=== PATIENT | male | born 1975 | race American Indian/Alaskan Native ===

== ENCOUNTER 2016-10-19 15:46 | Emergency (ER) | payer BC ==
--- NOTE | 2016-10-19 16:15 | Emergency Department Report ---
Chief Complaint: Chest Pain Stated Complaint: CHEST PAIN Time Seen by Provider: 10/19/16 16:12 - HPI History of Present Illness: PT c/o chest pain x 2 days. PT states his pain became worse today at work. - ROS Review of Systems: - n/v - Exam Vital Signs: Vital Signs 10/19/16 16:00 Temperature 98.8 F Pulse Rate 78 Respiratory 19 Rate Blood Pressure 143/96 O2 Sat by Pulse 99 Oximetry Physical Exam: thin male, no acute distress rrr MSE screening note: Focused history and physical exam performed. Due to findings the following was ordered: xr, labs ED Disposition for MSE Condition: Stable
[2016-10-19 16:27] LABS: Basophils % (Auto) 0.3 % (0.0-1.8); Eosinophils % (Auto) 2.4 % (0.0-4.3); Hematocrit 39.3 % (35.5-45.6); Hemoglobin 13.9 gm/dl (11.8-15.2); Mean Corpuscular HGB Conc 36 % (32-34); Mean Corpuscular Hemoglobin 33 pg (28-32); Mean Corpuscular Volume 94 fl (84-94); Platelet Count 212 K/mm3 (140-440); Red Blood Count 4.19 M/mm3 (3.65-5.03); Red Cell Distribution Width 13.7 % (13.2-15.2)
--- NOTE | 2016-10-19 16:49 | XRay Report ---
ROUTINE CHEST, TWO VIEWS: History: Chest pain. PA and lateral views demonstrate the heart and mediastinal contour to be of normal size and shape. The lungs are clear and fully expanded and the soft tissues and bony structures are normal. IMPRESSION: Normal study.
[2016-10-19 16:59] LABS: Anion Gap 18 mmol/L; BUN/Creatinine Ratio 13.33; Blood Urea Nitrogen 20 mg/dL (9-20); Calcium 8.9 mg/dL (8.4-10.2); Carbon Dioxide 24 mmol/L (22-30); Chloride 103.1 mmol/L (98-107); Glucose 87 mg/dL (75-100); Potassium 4.4 mmol/L (3.6-5.0); Sodium 141 mmol/L (137-145)
[2016-10-19] MEDS ORDERED: ALUM-MAG HYDROX-SIMETH 200-200-20MG/5ML PO ONE (20:32)
[2016-10-19] MEDS ORDERED: TORADOL IM ONE (20:32)
[2016-10-19] MEDS ORDERED: CARAFATE PO ONE (20:32)
[2016-10-19] MEDS ORDERED: BENTYL PO ONE (20:32)
--- NOTE | 2016-10-19 20:34 | Emergency Department Report ---
ED General Adult HPI - General Chief complaint: Chest Pain Stated complaint: CHEST PAIN Time Seen by Provider: 10/19/16 16:12 Source: patient, RN notes reviewed, old records reviewed Mode of arrival: Ambulatory Limitations: No Limitations - History of Present Illness Initial comments: This is a 41-year-old male. He is previously unknown to me. He has a past medical history of hypertension, chronic kidney disease, tobacco use, reported history of renal insufficiency, right bundle branch block. Patient admitted to this hospital June 2016 for chest pain, found to have an ejection fraction of 48%, and a negative nuclear stress test. The patient presents to the ER today with complaint of chest pain. The chest pain is central. It does not radiate to the back, arms or neck. It started at 9:00 in the morning. Chest pain denies nausea, vomiting, diaphoresis. There is no leg pain. There is no leg swelling. No recent trips greater than 4 hours. No recent hospital admissions. The patient also endorses left lower quadrant pain. This pain is achy. It has been on and off for the past 2 months. It does not radiate anywhere. It increases with palpation. It decreases with rest. There is no testicular pain. There are no irritative or obstructive urinary symptoms. He is defecating normally. Patient did admit to mild headache on review of systems, however this headache is not sudden or thunderclap in nature, did not really maximal intensity within an hour, is not the worse headache of his life. There is no neck pain or neck stiffness. -: Gradual Location: head, chest, abdomen Radiation: non-radiation Severity scale (0 -10): 4 Quality: aching Consistency: intermittent Improves with: other (per hpi) Worsens with: other (per hpi) Associated Symptoms: chest pain, headaches - Related Data Home Medications Medication Instructions Recorded Confirmed Last Taken Labetalol 300 mg PO BID 06/25/16 06/25/16 Unknown Losartan 100 mg PO DAILY 06/25/16 06/25/16 Unknown Allergies Allergy/AdvReac Type Severity Reaction Status Date / Time No Known Allergies Allergy Verified 06/25/16 21:23 ED Review of Systems ROS: Stated complaint: CHEST PAIN Other details as noted in HPI Constitutional: denies: diaphoresis, fever, malaise Eyes: denies: vision change ENT: denies: epistaxis Respiratory: see HPI. denies: cough Cardiovascular: denies: chest pain Gastrointestinal: abdominal pain Genitourinary: denies: urgency, dysuria Musculoskeletal: denies: back pain Skin: denies: lesions Neurological: headache ED Past Medical Hx - Past Medical History Hx Hypertension: Yes Hx Renal Disease: Yes - Social History Smoking Status: Current Every Day Smoker Substance Use Type: None - Medications Home Medications: Home Medications Medication Instructions Recorded Confirmed Last Taken Type Labetalol 300 mg PO BID 06/25/16 06/25/16 Unknown History Losartan 100 mg PO DAILY 06/25/16 06/25/16 Unknown History ED Physical Exam - General Limitations: No Limitations General appearance: alert, in no apparent distress - Head Head exam: Present: atraumatic, normocephalic - Eye Eye exam: Present: normal appearance, PERRL, EOMI, other (visual acuity intact to finger counting, color perception, reading at a close distance). Absent: nystagmus - ENT ENT exam: Present: normal exam, normal orophraynx, mucous membranes moist, normal external ear exam - Neck Neck exam: Present: normal inspection, full ROM. Absent: tenderness, meningismus - Respiratory Respiratory exam: Present: normal lung sounds bilaterally. Absent: respiratory distress, wheezes, rales, rhonchi, stridor, chest wall tenderness - Cardiovascular Cardiovascular Exam: Present: regular rate, normal rhythm, normal heart sounds. Absent: bradycardia, tachycardia, irregular rhythm, systolic murmur, diastolic murmur, rubs, gallop - GI/Abdominal GI/Abdominal exam: Present: soft, tenderness (left lower quadrant tender. No rebound, guarding or peritoneal signs.), normal bowel sounds. Absent: distended , guarding, rebound, rigid - Rectal Rectal exam: Present: deferred - exam: Present: normal inspection, other (there is no testicular tenderness. There is normal testicular lie bilaterally. There is normal cremasteric reflex bilaterally.). Absent: testicular tenderness External exam: Present: normal external exam. Absent: erythema, swelling - Extremities Exam Extremities exam: Present: normal inspection, full ROM, normal capillary refill. Absent: pedal edema, joint swelling, calf tenderness - Back Exam Back exam: Present: normal inspection, full ROM. Absent: tenderness, CVA tenderness (R), CVA tenderness (L), muscle spasm, paraspinal tenderness, vertebral tenderness - Neurological Exam Neurological exam: Present: alert, oriented X3, normal gait, other (Extraocular movements intact. Tongue midline. No facial droop. Facial sensation intact to light touch in the V1, V2, V3 distribution bilaterally. 5 and 5 strength in 4 extremities.. Sensation is intact to light touch in 4 extremities.). Absent : motor sensory deficit - Psychiatric Psychiatric exam: Present: normal affect, normal mood - Skin Skin exam: Present: warm, dry, intact, normal color. Absent: rash ED Course Vital Signs 10/19/16 10/19/16 10/19/16 16:00 19:45 19:51 Temperature 98.8 F Pulse Rate 78 68 67 Respiratory 19 11 L Rate Blood Pressure 143/96 168/95 Blood Pressure [Left] O2 Sat by Pulse 99 100 Oximetry 10/19/16 10/19/16 10/19/16 20:00 20:11 20:20 Temperature Pulse Rate 64 65 Respiratory 11 L 18 Rate Blood Pressure 155/96 155/96 Blood Pressure 155/96 [Left] O2 Sat by Pulse 100 99 Oximetry 10/19/16 10/19/16 10/19/16 20:21 20:30 20:45 Temperature Pulse Rate 65 66 69 Respiratory 13 18 13 Rate Blood Pressure 141/95 147/92 161/102 Blood Pressure [Left] O2 Sat by Pulse 100 100 100 Oximetry 10/19/16 10/19/16 10/19/16 20:51 21:00 21:11 Temperature Pulse Rate 70 62 63 Respiratory 16 18 16 Rate Blood Pressure 161/102 147/78 147/78 Blood Pressure [Left] O2 Sat by Pulse 100 100 98 Oximetry 10/19/16 10/19/16 21:21 21:30 Temperature Pulse Rate 63 65 Respiratory 14 10 L Rate Blood Pressure 159/78 132/76 Blood Pressure [Left] O2 Sat by Pulse 98 98 Oximetry ED Medical Decision Making - Lab Data Result diagrams: 10/19/16 16:11 10/19/16 16:11 Vital Signs 10/19/16 10/19/16 10/19/16 16:00 19:45 19:51 Temperature 98.8 F Pulse Rate 78 68 67 Respiratory 19 11 L Rate Blood Pressure 143/96 168/95 Blood Pressure [Left] O2 Sat by Pulse 99 100 Oximetry 10/19/16 10/19/16 10/19/16 20:00 20:11 20:20 Temperature Pulse Rate 64 65 Respiratory 11 L 18 Rate Blood Pressure 155/96 155/96 Blood Pressure 155/96 [Left] O2 Sat by Pulse 100 99 Oximetry 10/19/16 10/19/16 10/19/16 20:21 20:30 20:45 Temperature Pulse Rate 65 66 69 Respiratory 13 18 13 Rate Blood Pressure 141/95 147/92 161/102 Blood Pressure [Left] O2 Sat by Pulse 100 100 100 Oximetry 10/19/16 10/19/16 20:51 21:00 Temperature Pulse Rate 70 62 Respiratory 16 18 Rate Blood Pressure 161/102 147/78 Blood Pressure [Left] O2 Sat by Pulse 100 100 Oximetry Lab Results 10/19/16 10/19/16 10/19/16 Range/Units 16:11 16:11 16:15 WBC 12.0 H (4.5-11.0) K/mm3 RBC 4.19 (3.65-5.03) M/mm3 Hgb 13.9 (11.8-15.2) gm/dl Hct 39.3 (35.5-45.6) % MCV 94 (84-94) fl MCH 33 H (28-32) pg MCHC 36 H (32-34) % RDW 13.7 (13.2-15.2) % Plt Count 212 (140-440) K/mm3 Lymph % (Auto) 13.0 L (13.4-35.0) % Branch % (Auto) 6.9 (0.0-7.3) % Eos % (Auto) 2.4 (0.0-4.3) % Baso % (Auto) 0.3 (0.0-1.8) % Lymph # 1.6 (1.2-5.4) K/mm3 Branch # 0.8 (0.0-0.8) K/mm3 Eos # 0.3 (0.0-0.4) K/mm3 Baso # 0.0 (0.0-0.1) K/mm3 Seg Neutrophils % 77.4 H (40.0-70.0) % Seg Neutrophils # 9.3 H (1.8-7.7) K/mm3 Sodium 141 (137-145) mmol/L Potassium 4.4 (3.6-5.0) mmol/L Chloride 103.1 (98-107) mmol/L Carbon Dioxide 24 (22-30) mmol/L Anion Gap 18 mmol/L BUN 20 (9-20) mg/dL Creatinine 1.5 (0.8-1.5) mg/dL Estimated GFR > 60 ml/min BUN/Creatinine Ratio 13.33 % Glucose 87 (75-100) mg/dL Calcium 8.9 (8.4-10.2) mg/dL Total Creatine Kinase 214 H (55-170) units/L Troponin T < 0.010 (0.00-0.029) ng/mL Urine Color (Yellow) Urine Turbidity (Clear) Urine pH (5.0-7.0) Ur Specific [place] (1.003-1.030) Urine Protein (Negative) mg/dL Urine Glucose (UA) (Negative) mg/dL Urine Ketones (Negative) mg/dL Urine Blood (Negative) Urine Nitrite (Negative) Urine Bilirubin (Negative) Urine Urobilinogen (<2.0) mg/dL Ur Leukocyte Esterase (Negative) Urine WBC (Auto) (0.0-6.0) /HPF Urine RBC (Auto) (0.0-6.0) /HPF Urine Mucus /HPF 10/19/16 10/19/16 Range/Units 19:57 20:57 WBC (4.5-11.0) K/mm3 RBC (3.65-5.03) M/mm3 Hgb (11.8-15.2) gm/dl Hct (35.5-45.6) % MCV (84-94) fl MCH (28-32) pg MCHC (32-34) % RDW (13.2-15.2) % Plt Count (140-440) K/mm3 Lymph % (Auto) (13.4-35.0) % Branch % (Auto) (0.0-7.3) % Eos % (Auto) (0.0-4.3) % Baso % (Auto) (0.0-1.8) % Lymph # (1.2-5.4) K/mm3 Branch # (0.0-0.8) K/mm3 Eos # (0.0-0.4) K/mm3 Baso # (0.0-0.1) K/mm3 Seg Neutrophils % (40.0-70.0) % Seg Neutrophils # (1.8-7.7) K/mm3 Sodium (137-145) mmol/L Potassium (3.6-5.0) mmol/L Chloride (98-107) mmol/L Carbon Dioxide (22-30) mmol/L Anion Gap mmol/L BUN (9-20) mg/dL Creatinine (0.8-1.5) mg/dL Estimated GFR ml/min BUN/Creatinine Ratio % Glucose (75-100) mg/dL Calcium (8.4-10.2) mg/dL Total Creatine Kinase (55-170) units/L Troponin T < 0.010 (0.00-0.029) ng/mL Urine Color Yellow (Yellow) Urine Turbidity Clear (Clear) Urine pH 5.0 (5.0-7.0) Ur Specific [place] 1.011 (1.003-1.030) Urine Protein <15 mg/dl (Negative) mg/dL Urine Glucose (UA) Neg (Negative) mg/dL Urine Ketones Neg (Negative) mg/dL Urine Blood Neg (Negative) Urine Nitrite Neg (Negative) Urine Bilirubin Neg (Negative) Urine Urobilinogen < 2.0 (<2.0) mg/dL Ur Leukocyte Esterase Neg (Negative) Urine WBC (Auto) < 1.0 (0.0-6.0) /HPF Urine RBC (Auto) 1.0 (0.0-6.0) /HPF Urine Mucus Few /HPF - EKG Data -: EKG Interpreted by Vt - EKG Data 10/19/16 21:38 EKG #1 demonstrates sinus, 74 bpm, normal axis, right bundle branch block, atrial enlargement, QTC 483 ms. abnormal EKG, not morphologically consistent with STEMI, appears unchanged when compared to prior EKG from 06/25/2016. EKG #2 unchanged, demonstrates sinus bradycardia, 58 beats minute, right bundle branch block, not morphologically consistent with STEMI. - Radiology Data Radiology results: report reviewed, image reviewed X-ray of the chest is negative for acute disease. X-ray of the abdomen and pelvis is negative for acute disease. - Medical Decision Making Differential diagnosis: Acute coronary syndrome, pneumonia, GERD, gastritis, constipation, renal colic, migraine headache Assessment and plan: 41-year-old male with a primary complaint of chest pain, and a number of other complaints as well. Troponin is negative 2, had a negative nuclear stress test earlier on this year, EKG morphologically unchanged 2, unchanged from prior EKG, low risk by CHAUNCEY score, low risk by heart score, low risk by well's criteria, no pulmonary embolus or DVT risk factors, perc negative. Patient felt improved after symptomatic therapy. Has a benign genital exam. Belly soft on repeat examination. Given young age, I see no reason to obtain advanced imaging of the abdomen and pelvis, especially given that his symptoms have been going on for 2 months. The patient can follow up with outpatient primary care doctor for his numerous nonurgent complaints, and he is suitable for outpatient rn clinical for his atypical chest pain. He'll be discharged at this time, return precautions are reviewed. Critical care attestation.: If time is entered above; I have spent that time in minutes in the direct care of this critically ill patient, excluding procedure time. ED Disposition Clinical Impression: Chest pain Disposition: DC-01 TO HOME OR SELFCARE Is pt being admited?: No Does the pt Need Aspirin: No Condition: Stable Instructions: Chest Pain (ED) Additional Instructions: Laboratory studies were unremarkable. EKG unchanged. X-rays unremarkable. Symptoms are unlikely to be coming from major adverse cardiac event. Follow-up with the primary care doctor or rn clinical within the next 7-[address] Shashi Campo is a local primary care doctor. Doctor's Carmela and Jeremías are local client technical specialist. Return to the ER right away with new pain, worsened pain, migration of pain, fevers, chills, confusion, intractable nausea or vomiting, inability to tolerate liquid feeds. Referrals: PRIMARY MD CRIS [Primary Care Provider] - 3-5 Days SHASHI CAMPO MD [Staff Physician] - 3-5 Days CELSO HERNADEZ MD [Staff Physician] - 3-5 Days ANGELA ESTRADA MD [Staff Physician] - 3-5 Days
[2016-10-19 20:49] LABS: Bilirubin,Urine NEG (Negative); Blood,Urine NEG (Negative); Ketones,Urine NEG (Negative); Leukocyte Esterase,Urine NEG (Negative); Mucus,Urine FEW /HPF; Nitrite,Urine NEG (Negative); Protein,Urine <15 mg/dL mg/dL (Negative); Urobilinogen,Urine < 2.0 mg/dL (<2.0); WBC,Urine < 1.0 /HPF (0.0-6.0)
[2016-10-19 21:41] VITALS: BP 132/76
--- NOTE | 2016-10-20 07:29 | XRay Report ---
ABDOMEN, 2 views: History: Left lower quadrant abdominal pain.. There is no evidence of free air beneath the diaphragms. The gas pattern within the abdomen is unremarkable. There is no evidence of bowel dilatation, significant air-fluid levels, or pathologic calcifications. Organ shadows are unremarkable. Moderate scoliosis in the thoracolumbar region is noted. IMPRESSION: Unremarkable abdomen.
== END 2016-10-19 22:04 | disposition home or self-care (01) ==
LOC: ED 15:46
DX: R07.9 Chest pain, unspecified (principal); F17.200 Nicotine dependence, unspecified, uncomplicated; I12.9 Hypertensive chronic kidney disease with stage 1 through stage 4 chronic kidney disease, or unspecified chronic kidney disease; N18.9 Chronic kidney disease, unspecified
CPT/HCPCS: 36415; 71020; 74020; 80048; 81001; 82550; 84484; 85025; 93005; 93010; 96372; 99285; J1885

== ENCOUNTER 2016-10-26 09:41 | Emergency (ER) | payer BC ==
--- NOTE | 2016-10-26 10:00 | Emergency Department Report ---
Chief Complaint: Pain General Stated Complaint: LEFT SIDE PAIN Time Seen by Provider: 10/26/16 09:57 - HPI History of Present Illness: PT c/o L side pain. PT states he was doing some lifting yesterday before he felt the pain. - ROS Review of Systems: - sob - palpitations + abd pain - Exam Physical Exam: + left upper abd ttp + left chest wall ttp MSE screening note: Focused history and physical exam performed. Due to findings the following was ordered: xr, labs ED Disposition for MSE Condition: Stable
--- NOTE | 2016-10-26 10:24 | XRay Report ---
CHEST 2 VIEWS INDICATION: Chest wall pain after lifting. COMPARISON: 10/19/2016. FINDINGS: PA and lateral chest radiographs demonstrate normal cardiomediastinal silhouette. Clear lungs. Intact bones. CONCLUSION: No acute disease in the chest, stable. Thank you for the opportunity to participate in this patient's care.
[2016-10-26 10:27] LABS: Eosinophils % (Auto) 3.1 % (0.0-4.3); Hematocrit 40.2 % (35.5-45.6); Mean Corpuscular HGB Conc 35 % (32-34); Mean Corpuscular Hemoglobin 33 pg (28-32); Mean Corpuscular Volume 94 fl (84-94); Platelet Count 254 K/mm3 (140-440); Red Cell Distribution Width 13.8 % (13.2-15.2); White Blood Count 12.5 K/mm3 (4.5-11.0)
[2016-10-26 10:42] LABS: Alanine Aminotransferase 17 units/L (7-56); Albumin 4.3 g/dL (3.9-5); Albumin/Globulin Ratio 1.5 %; Alkaline Phosphatase 61 units/L (35-129); Anion Gap 18 mmol/L; BUN/Creatinine Ratio 9.23; Blood Urea Nitrogen 12 mg/dL (9-20); Calcium 8.8 mg/dL (8.4-10.2); Carbon Dioxide 23 mmol/L (22-30); Chloride 105.8 mmol/L (98-107); Glucose 153 mg/dL (75-100); Potassium 3.8 mmol/L (3.6-5.0); Sodium 143 mmol/L (137-145); Total Protein 7.1 g/dL (6.3-8.2)
[2016-10-26 12:26] LABS: Bilirubin,Urine NEG (Negative); Blood,Urine NEG (Negative); Ketones,Urine TR mg/dL (Negative); Leukocyte Esterase,Urine TR (Negative); Mucus,Urine 1+ /HPF; Nitrite,Urine NEG (Negative); Urobilinogen,Urine < 2.0 mg/dL (<2.0)
[2016-10-26] MEDS ORDERED: TORADOL IM ONE (16:35)
--- NOTE | 2016-10-26 16:40 | Emergency Department Report ---
ED Back Pain/Injury HPI - General Chief Complaint: Abdominal Pain Stated Complaint: LEFT SIDE PAIN Time Seen by Provider: 10/26/16 09:57 Source: patient Limitations: No Limitations - History of Present Illness Initial Comments: 41-year-old male here with complaint of left back pain. Patient states he's been lifting heavy equipment over the course of the last 24 hours. Started noticed pain yesterday. Denies fevers chills nausea vomiting. States his pain does radiate around to the side. No dysuria no frequency. States he does have a history of kidney stones. MD Complaint: back pain -: Sudden Similar Symptoms Previously: No Place: work Radiation: abdomen Severity: moderate Quality: sharp Consistency: constant Worsens With: movement Context: while lifting Associated Symptoms: denies other symptoms. denies: confusion, weakness, chest pain, numbness, difficulty walking, diaphoresis, incontinence, fever/chills, constipation, headaches, nausea/vomiting, shortness of breath - Related Data Home Medications Medication Instructions Recorded Confirmed Last Taken Labetalol 300 mg PO BID 06/25/16 06/25/16 Unknown Losartan 100 mg PO DAILY 06/25/16 06/25/16 Unknown Previous Rx's Medication Instructions Recorded Last Taken Type Ibuprofen [Motrin] 600 mg PO Q8H PRN #30 tablet 10/26/16 Unknown Rx traMADol [Ultram 50 MG tab] 50 mg PO Q6HR PRN #10 tablet 10/26/16 Unknown Rx Allergies Allergy/AdvReac Type Severity Reaction Status Date / Time No Known Allergies Allergy Verified 06/25/16 21:23 ED Review of Systems ROS: Stated complaint: LEFT SIDE PAIN Other details as noted in HPI Comment: All other systems reviewed and negative Constitutional: denies: chills, fever Eyes: denies: eye pain, eye discharge, vision change ENT: denies: ear pain, throat pain Respiratory: denies: cough, shortness of breath, wheezing Cardiovascular: denies: chest pain, palpitations Endocrine: no symptoms reported Gastrointestinal: denies: abdominal pain, nausea, diarrhea Genitourinary: denies: urgency, dysuria Musculoskeletal: denies: back pain, joint swelling, arthralgia Skin: denies: rash, lesions Neurological: denies: headache, weakness, paresthesias Psychiatric: denies: anxiety, depression Hematological/Lymphatic: denies: easy bleeding, easy bruising ED Past Medical Hx - Past Medical History Previous Medical History?: Yes Hx Hypertension: Yes Hx Renal Disease: Yes - Surgical History Past Surgical History?: No - Family History Family history: no significant - Social History Smoking Status: Current Every Day Smoker Substance Use Type: Marijuana, Prescribed - Medications Home Medications: Home Medications Medication Instructions Recorded Confirmed Last Taken Type Labetalol 300 mg PO BID 06/25/16 06/25/16 Unknown History Losartan 100 mg PO DAILY 06/25/16 06/25/16 Unknown History Ibuprofen [Motrin] 600 mg PO Q8H PRN #30 tablet 10/26/16 Unknown Rx traMADol [Ultram 50 MG tab] 50 mg PO Q6HR PRN #10 tablet 10/26/16 Unknown Rx ED Physical Exam - General Limitations: No Limitations General appearance: alert, in no apparent distress - Head Head exam: Present: atraumatic, normocephalic - Eye Eye exam: Present: normal appearance - ENT ENT exam: Present: mucous membranes moist - Neck Neck exam: Present: normal inspection - Respiratory Respiratory exam: Present: normal lung sounds bilaterally. Absent: respiratory distress - Cardiovascular Cardiovascular Exam: Present: regular rate, normal rhythm. Absent: systolic murmur, diastolic murmur, rubs, gallop - GI/Abdominal GI/Abdominal exam: Present: soft, normal bowel sounds - Rectal Rectal exam: Present: deferred - Extremities Exam Extremities exam: Present: normal inspection - Back Exam Back exam: Present: normal inspection, tenderness. Absent: CVA tenderness (R), CVA tenderness (L) - Neurological Exam Neurological exam: Present: alert, oriented X3 - Psychiatric Psychiatric exam: Present: normal affect, normal mood - Skin Skin exam: Present: warm, dry, intact, normal color. Absent: rash ED Course Vital Signs 10/26/16 09:57 Temperature 99.1 F Pulse Rate 69 Respiratory 20 Rate Blood Pressure 130/91 O2 Sat by Pulse 99 Oximetry ED Medical Decision Making - Lab Data Result diagrams: 10/26/16 10:01 10/26/16 10:01 Laboratory Results - last 24 hr 10/26/16 10/26/16 10/26/16 10:01 10:01 10:01 WBC 12.5 H RBC 4.30 Hgb 14.0 Hct 40.2 MCV 94 MCH 33 H MCHC 35 H RDW 13.8 Plt Count 254 Lymph % (Auto) 18.2 [place] % (Auto) 6.3 Eos % (Auto) 3.1 Baso % (Auto) 1.0 Lymph # 2.3 [place] # 0.8 Eos # 0.4 Baso # 0.1 Seg Neutrophils % 71.4 H Seg Neutrophils # 8.9 H Sodium 143 Potassium 3.8 Chloride 105.8 Carbon Dioxide 23 Anion Gap 18 BUN 12 Creatinine 1.3 Estimated GFR > 60 BUN/Creatinine Ratio 9.23 Glucose 153 H Calcium 8.8 Total Bilirubin 0.60 AST 21 ALT 17 Alkaline Phosphatase 61 Total Creatine Kinase Total Protein 7.1 Albumin 4.3 Albumin/Globulin Ratio 1.5 Lipase 41 Urine Color Urine Turbidity Urine pH Ur Specific [place] Urine Protein Urine Glucose (UA) Urine Ketones Urine Blood Urine Nitrite Urine Bilirubin Urine Urobilinogen Ur Leukocyte Esterase Urine WBC (Auto) Urine RBC (Auto) U Epithel Cells (Auto) Urine Mucus 10/26/16 10/26/16 10:01 11:21 WBC RBC Hgb Hct MCV MCH MCHC RDW Plt Count Lymph % (Auto) [place] % (Auto) Eos % (Auto) Baso % (Auto) Lymph # [place] # Eos # Baso # Seg Neutrophils % Seg Neutrophils # Sodium Potassium Chloride Carbon Dioxide Anion Gap BUN Creatinine Estimated GFR BUN/Creatinine Ratio Glucose Calcium Total Bilirubin AST ALT Alkaline Phosphatase Total Creatine Kinase 323 H Total Protein Albumin Albumin/Globulin Ratio Lipase Urine Color Yellow Urine Turbidity Clear Urine pH 5.0 Ur Specific [place] 1.021 Urine Protein 30 mg/dl Urine Glucose (UA) Neg Urine Ketones Tr Urine Blood Neg Urine Nitrite Neg Urine Bilirubin Neg Urine Urobilinogen < 2.0 Ur Leukocyte Esterase Tr Urine WBC (Auto) 1.0 Urine RBC (Auto) 4.0 U Epithel Cells (Auto) 1.0 Urine Mucus 1+ - Medical Decision Making 41-year-old male with a history of new onset back pain after lifting heavy machinery. He has no numbness tingling or cauda equina type symptoms. He is mildly tender in his left back. He has a few white blood cells in his urine but he has no dysuria fever chills or urinary frequency. I do not suspect he has UTI. His slight elevation in his white blood cell count but no obvious source. At this point I'll treat him with NSAIDs and discharge him home. Portions of this chart were dictated with dictation software. There may be dictation errors contained within this note. Critical care attestation.: If time is entered above; I have spent that time in minutes in the direct care of this critically ill patient, excluding procedure time. ED Disposition Clinical Impression: Flank pain Disposition: DC- TO HOME OR SELFCARE Is pt being admited?: No Condition: Stable Instructions: Flank Pain (ED) Prescriptions: Ibuprofen [Motrin] 600 mg PO Q8H PRN #30 tablet PRN Reason: Pain traMADol [Ultram 50 MG tab] 50 mg PO Q6HR PRN #10 tablet PRN Reason: Pain Referrals: VICKY BEAN [Primary Care Provider] - 3-5 Days
[2016-10-26 16:57] VITALS: BP 129/69
== END 2016-10-26 16:56 | disposition home or self-care (01) ==
LOC: ED 09:41
DX: R10.9 Unspecified abdominal pain (principal); I10 Essential (primary) hypertension; F17.200 Nicotine dependence, unspecified, uncomplicated; F12.10 Cannabis abuse, uncomplicated
CPT/HCPCS: 36415; 71020; 80053; 81001; 82550; 83690; 85025; 96372; 99284; J1885

== ENCOUNTER 2016-12-13 19:00 | Emergency (ER) | payer BC | END 2016-12-14 05:50 | disposition left against medical advice (07) | LOC: ED 19:00 | DX: Z53.21 Procedure and treatment not carried out due to patient leaving prior to being seen by health care provider (principal) ==

== ENCOUNTER 2016-12-14 14:22 | Emergency (ER) | payer BC ==
--- NOTE | 2016-12-14 15:23 | Emergency Department Report ---
Chief Complaint: Chest Pain Stated Complaint: CP Time Seen by Provider: 12/14/16 15:15 - HPI History of Present Illness: PT c/o L chest pain x 2 days. Pt states the pain started while he was working on a job and reaching up. PT states he took 600mg Motrin and had mild relief but he did not continue to take them because he was told by MD not to take due to his kidneys + smoker - ROS Review of Systems: - cough - headache - Exam Vital Signs: Vital Signs 12/14/16 15:02 Temperature 98.1 F Pulse Rate 73 Respiratory 18 Rate Blood Pressure 193/124 O2 Sat by Pulse 99 Oximetry Physical Exam: thin male no acute distress gcs 15 no focal weakness + chest wall ttp MSE screening note: Focused history and physical exam performed. Due to findings the following was ordered: labs, ekg, xr ED Disposition for MSE Condition: Stable
[2016-12-14 17:34] LABS: Basophils % (Auto) 1.4 % (0.0-1.8); Eosinophils % (Auto) 1.6 % (0.0-4.3); Mean Corpuscular HGB Conc 34 % (32-34); Mean Corpuscular Hemoglobin 32 pg (28-32); Mean Corpuscular Volume 95 fl (84-94); Platelet Count 223 K/mm3 (140-440); Red Blood Count 4.32 M/mm3 (3.65-5.03); Red Cell Distribution Width 13.8 % (13.2-15.2); White Blood Count 10.3 K/mm3 (4.5-11.0)
[2016-12-14 17:52] LABS: Anion Gap 18 mmol/L; BUN/Creatinine Ratio 12; Blood Urea Nitrogen 16 mg/dL (9-20); Calcium 8.9 mg/dL (8.4-10.2); Carbon Dioxide 24 mmol/L (22-30); Chloride 102.6 mmol/L (98-107); Glucose 142 mg/dL (75-100); Potassium 4.2 mmol/L (3.6-5.0); Sodium 140 mmol/L (137-145)
[2016-12-14] MEDS ORDERED: COZAAR PO ONE (23:37)
[2016-12-14] MEDS ORDERED: NORCO 5/325 PO ONE (23:38)
[2016-12-14] MEDS ORDERED: TORADOL IM ONE (23:38)
--- NOTE | 2016-12-15 00:36 | Emergency Department Report ---
ED Chest Pain HPI - General Chief Complaint: Chest Pain Stated Complaint: CP Time Seen by Provider: 12/14/16 15:15 Source: patient, old records reviewed (exercise stress test 06/2016 neg, ef 48%) Mode of arrival: Ambulatory Limitations: No Limitations - History of Present Illness Initial Comments: 41-year-old male with the past medical history of hypertension presents to the hospital complaints of left-sided chest pain. Symptoms 2 days. Pain is aching , intermittent, worse with palpation, cough, and deep inspiration. Patient denies associated symptoms include shortness of breath, nausea, vomiting, fever , or frequent coughing. Patient has been doing some lifting with his arms above his head and thinks that caused the pain. Patient has been noncompliant with his blood pressure medication 2 days because it causes impotence he wanted to have sex with his girlfriend. He still has medication at home. He denies recent travel, Meniscus, Edema, History of PE/DVT. He Reports He Was Admitted and Had a Unremarkable Stress Test Here This Year. Denies Family History of CAD. He Is a Smoker. Severity scale (0 -10): 6 - Related Data Home Medications Medication Instructions Recorded Confirmed Last Taken Labetalol 300 mg PO BID 06/25/16 12/14/16 12/11/16 Losartan 100 mg PO DAILY 06/25/16 12/14/16 12/11/16 Previous Rx's Medication Instructions Recorded Last Taken Type Ibuprofen [Motrin] 600 mg PO Q8H PRN #20 tablet 12/15/16 Unknown Rx traMADol [Ultram 50 MG tab] 50 mg PO Q6HR PRN #20 tablet 12/15/16 Unknown Rx Allergies Allergy/AdvReac Type Severity Reaction Status Date / Time No Known Allergies Allergy Verified 06/25/16 21:23 Heart Score - HEART Score History: Slightly suspicious EKG: Non-specific Age: < 45 Risk factors: 1-2 risk factors Troponin: < normal limit HEART Score: 2 ED Review of Systems ROS: Stated complaint: CP Other details as noted in HPI Comment: All other systems reviewed and negative Other: Constitutional: No fevers chills Eyes: No eye pain visual changes ENT: No ear pain or throat pain Neck: Denies pain Respiratory: Denies cough wheezing shortness of breath Cardiovascular: Denies palpitations, syncope GI: Denies abdominal pain, nausea, vomiting, diarrhea : Denies dysuria Musculoskeletal: Denies back pain Skin: Denies rash, lesions, erythema Neurologic: Denies headache, numbness, weakness Psychiatric: Denies suicidal ideation, hallucinations ED Past Medical Hx - Past Medical History Previous Medical History?: Yes Hx Hypertension: Yes Hx Renal Disease: Yes - Social History Smoking Status: Current Every Day Smoker Substance Use Type: None - Medications Home Medications: Home Medications Medication Instructions Recorded Confirmed Last Taken Type Labetalol 300 mg PO BID 06/25/16 12/14/16 12/11/16 History Losartan 100 mg PO DAILY 06/25/16 12/14/16 12/11/16 History Ibuprofen [Motrin] 600 mg PO Q8H PRN #20 tablet 12/15/16 Unknown Rx traMADol [Ultram 50 MG tab] 50 mg PO Q6HR PRN #20 tablet 12/15/16 Unknown Rx ED Physical Exam - General Limitations: No Limitations - Other Other exam information: General: No limitations, patient is alert in no acute distress Head exam: Atraumatic, normocephalic Eyes exam: Normal appearance ENT: Moist mucous membrane, normal oropharynx Neck exam: Normal inspection, full range of motion, no meningismus nontender Respiratory exam: Clear to auscultation bilateral, no wheezes, rales, crackles Cardiovascular: Normal rate and rhythm, normal heart sounds. Reproducible left anterior chest wall tenderness Abdomen: Soft, nondistended, and nontender, with normal bowel sounds, no rebound, or guarding Extremity: Full range of motion normal inspection no deformity, no calf tenderness or edema Back: Normal Inspection, full range of motion, no tenderness Neurologic: Alert, oriented x3, cranial nerves intact, no motor or sensory deficit Psychiatric: normal affect, normal mood Skin: Warm, dry, intact ED Course Vital Signs 12/14/16 12/14/16 12/14/16 15:02 22:44 22:53 Temperature 98.1 F 97.7 F Pulse Rate 73 65 51 L Respiratory 18 18 11 L Rate Blood Pressure 193/124 189/123 Blood Pressure [Left] O2 Sat by Pulse 99 100 100 Oximetry 12/14/16 12/14/16 12/14/16 22:59 23:00 23:15 Temperature Pulse Rate 53 L 74 Respiratory 14 15 Rate Blood Pressure 177/106 177/106 Blood Pressure 208/104 [Left] O2 Sat by Pulse 100 100 Oximetry 12/14/16 12/14/16 12/14/16 23:30 23:45 23:59 Temperature Pulse Rate 59 L 56 L 53 L Respiratory 13 14 Rate Blood Pressure 183/119 183/119 183/119 Blood Pressure [Left] O2 Sat by Pulse 100 99 Oximetry 12/15/16 00:01 Temperature Pulse Rate 60 Respiratory 13 Rate Blood Pressure 174/99 Blood Pressure [Left] O2 Sat by Pulse 99 Oximetry - Reevaluation(s) Reevaluation #1: 12/15/16 00:40 Given the losartan, [place], and Toradol. Pain improved. Her blood pressure has decreased compared to initial presentation. Patient she will be initiated to continue his medications and am CHAUNCEY score - Chauncey Score Age > 65: (0) No Aspirin use within the Past 7 Days: (0) No 3 or more CAD Risk Factors: (1) Yes 2 or more Angina events in past 24 hrs: (0) No Known CAD with more than 50% Stenosis: (0) No Elevated Cardiac Markers: (0) No ST Deviation Greater than 0.5mm: (0) No CHAUNCEY Score: 1 ED Medical Decision Making - Lab Data Result diagrams: 12/14/16 17:26 12/14/16 17:26 Lab Results 12/14/16 12/14/16 12/15/16 Range/Units 17:26 17:26 00:01 WBC 10.3 (4.5-11.0) K/mm3 RBC 4.32 (3.65-5.03) M/mm3 Hgb 14.0 (11.8-15.2) gm/dl Hct 41.0 (35.5-45.6) % MCV 95 H (84-94) fl MCH 32 (28-32) pg MCHC 34 (32-34) % RDW 13.8 (13.2-15.2) % Plt Count 223 (140-440) K/mm3 Lymph % (Auto) 27.2 (13.4-35.0) % [place] % (Auto) 6.4 (0.0-7.3) % Eos % (Auto) 1.6 (0.0-4.3) % Baso % (Auto) 1.4 (0.0-1.8) % Lymph # 2.8 (1.2-5.4) K/mm3 [place] # 0.7 (0.0-0.8) K/mm3 Eos # 0.2 (0.0-0.4) K/mm3 Baso # 0.1 (0.0-0.1) K/mm3 Seg Neutrophils % 63.4 (40.0-70.0) % Seg Neutrophils # 6.6 (1.8-7.7) K/mm3 D-Dimer 163.17 (0-234) ng/mlDDU Sodium 140 (137-145) mmol/L Potassium 4.2 (3.6-5.0) mmol/L Chloride 102.6 (98-107) mmol/L Carbon Dioxide 24 (22-30) mmol/L Anion Gap 18 mmol/L BUN 16 (9-20) mg/dL Creatinine 1.3 (0.8-1.5) mg/dL Estimated GFR > 60 ml/min BUN/Creatinine Ratio 12 % Glucose 142 H (75-100) mg/dL Calcium 8.9 (8.4-10.2) mg/dL Troponin T < 0.010 (0.00-0.029) ng/mL 12/15/16 Range/Units 00:01 WBC (4.5-11.0) K/mm3 RBC (3.65-5.03) M/mm3 Hgb (11.8-15.2) gm/dl Hct (35.5-45.6) % MCV (84-94) fl MCH (28-32) pg MCHC (32-34) % RDW (13.2-15.2) % Plt Count (140-440) K/mm3 Lymph % (Auto) (13.4-35.0) % [place] % (Auto) (0.0-7.3) % Eos % (Auto) (0.0-4.3) % Baso % (Auto) (0.0-1.8) % Lymph # (1.2-5.4) K/mm3 [place] # (0.0-0.8) K/mm3 Eos # (0.0-0.4) K/mm3 Baso # (0.0-0.1) K/mm3 Seg Neutrophils % (40.0-70.0) % Seg Neutrophils # (1.8-7.7) K/mm3 D-Dimer (0-234) ng/mlDDU Sodium (137-145) mmol/L Potassium (3.6-5.0) mmol/L Chloride (98-107) mmol/L Carbon Dioxide (22-30) mmol/L Anion Gap mmol/L BUN (9-20) mg/dL Creatinine (0.8-1.5) mg/dL Estimated GFR ml/min BUN/Creatinine Ratio % Glucose (75-100) mg/dL Calcium (8.4-10.2) mg/dL Troponin T < 0.010 (0.00-0.029) ng/mL - EKG Data -: EKG Interpreted by Me (sinus rhythm rate 62, nonspecific intraventricular delay no STEMI) - EKG Data When compared to previous EKG there are: no significant change (compared to 10/2016) - Radiology Data Radiology results: report reviewed (chest x-ray: Normal) - Medical Decision Making In ED pt heart rate fluctuated between 50s to 70s Patient's pain is reproducible with chest wall and he has a history of heavy lifting above his head. His blood pressure is elevated secondary to medication noncompliance the patient has medicines at home. Pain is atypical. Cardiac enzymes negative 2. D-dimer negative. No risk factors or signs or symptoms of DVT. Patient be discharged home with pain medication and outpatient follow- up. Patient encouraged to continue his blood pressure medication and discussed the side effects with his primary care doctor for medication change - Differential Diagnosis costochondritis, chest wall strain, PE, [place], unstable angina Critical Care Time: No Critical care attestation.: If time is entered above; I have spent that time in minutes in the direct care of this critically ill patient, excluding procedure time. ED Disposition Clinical Impression: HTN (hypertension), Chest wall muscle strain, Noncompliance with medication regimen Disposition: DC-01 TO HOME OR SELFCARE Is pt being admited?: No Does the pt Need Aspirin: No Condition: Stable Instructions: Hypertension (ED), Thoracic Pain (ED) Additional Instructions: Take the medication as prescribed for pain. Continue your blood pressure medications as prescribed. Follow-up with your doctor within 2 days for reevaluation and review of your current medication regimen Prescriptions: Ibuprofen [Motrin] 600 mg PO Q8H PRN #20 tablet PRN Reason: Pain traMADol [Ultram 50 MG tab] 50 mg PO Q6HR PRN #20 tablet PRN Reason: Pain Referrals: PRIMARY CARE, [Primary Care Provider] - 2-3 Days Time of Disposition: 00:44
[2016-12-15 00:57] VITALS: BP 172/104
== END 2016-12-15 00:57 | disposition home or self-care (01) ==
LOC: ED 14:22
DX: S29.011A Strain of muscle and tendon of front wall of thorax, initial encounter (principal); I10 Essential (primary) hypertension; F17.200 Nicotine dependence, unspecified, uncomplicated; Z91.14 Patient's other noncompliance with medication regimen; X58.XXXA Exposure to other specified factors, initial encounter; Y93.9 Activity, unspecified; Y92.9 Unspecified place or not applicable; Y99.9 Unspecified external cause status
CPT/HCPCS: 36415; 71020; 80048; 84484; 85025; 85379; 93005; 93010; 96372; 99284; J1885

== ENCOUNTER 2017-04-19 17:24 | Emergency (ER) | payer BC ==
--- NOTE | 2017-04-19 23:07 | Emergency Department Report ---
HPI - General Chief Complaint: Extremity Injury, Lower Time Seen by Provider: 04/19/17 22:24 - HPI HPI: 41-year-old male with a history of blood pressure controlled and medication presents to ED complaining of right foot pain status post tripped over 3 steps 2 days ago. Patient states he was working on the step around known and missed a couple of steps and had his foot. She says she is able to walk and was able to go to work for the past couple of days but states that pain gets to bothering him. He denies loss of sensation, difficulty walking or any other problems. ED Past Medical Hx - Past Medical History Hx Hypertension: Yes Hx Renal Disease: Yes - Social History Smoking Status: Current Every Day Smoker Substance Use Type: None - Medications Home Medications: Home Medications Medication Instructions Recorded Confirmed Last Taken Type Labetalol 300 mg PO BID 06/25/16 12/14/16 12/11/16 History Losartan 100 mg PO DAILY 06/25/16 12/14/16 12/11/16 History Ibuprofen [Motrin] 600 mg PO Q8H PRN #20 tablet 12/15/16 Unknown Rx traMADol [Ultram 50 MG tab] 50 mg PO Q6HR PRN #20 tablet 12/15/16 Unknown Rx Cyclobenzaprine [Flexeril] 10 mg PO QHS PRN #20 tablet 04/19/17 Unknown Rx Ibuprofen [Motrin] 800 mg PO Q8HR PRN #30 tablet 04/19/17 Unknown Rx ED Review of Systems ROS: Stated complaint: RIGHT FOOT SWOLLEN Other details as noted in HPI Constitutional: denies: chills, fever Eyes: denies: eye pain, eye discharge, vision change ENT: denies: ear pain, throat pain Respiratory: denies: cough, shortness of breath, wheezing Cardiovascular: denies: chest pain, palpitations Endocrine: no symptoms reported Gastrointestinal: denies: abdominal pain, nausea, diarrhea Genitourinary: denies: urgency, dysuria Musculoskeletal: myalgia. denies: back pain, joint swelling, arthralgia Skin: denies: rash, lesions, pruritus Neurological: denies: headache, weakness, numbness, paresthesias Psychiatric: denies: anxiety, depression Hematological/Lymphatic: denies: easy bleeding, easy bruising Physical Exam - Physical Exam Vital Signs: Vital Signs 04/19/17 18:13 Temperature 98.2 F Pulse Rate 75 Respiratory 16 Rate Blood Pressure 173/122 O2 Sat by Pulse 100 Oximetry Physical Exam: GENERAL: Alert and oriented x3, no apparent distress, Normal Gait, atraumatic. HEAD: Head is normocephalic and a-traumatic. LUNGS: Symetrical with respiration, No wheezing, no rales or crackles, CTAB. HEART: S1, S2 present, regular rate and rhythm without murmur, no rubs, no gallops. Non tender to palpation EXTREMITIES/MUSCULOSKELETAL: No cyanosis, clubbing, rash, lesions or edema. Full ROM bilaterally. UE/LE Pulses 2+ bilaterally. LE and UE 5+ strength bilaterally, no laceration, no swelling to the right foot. Patient able to flex and extend foot without any problems, no swelling of the foot. Ankle joints are intact bilaterally. Mild tenderness to palpation of the anterior foot NEUROLOGIC: The patient is cooperative with no focal neurologic deficits. Normal speech. Normal sensation in bilateral upper and lower extremities, No loss of sensation, SKIN: Warm and dry, No lesions, No ulceration or induration present. ED Course Vital Signs 04/19/17 18:13 Temperature 98.2 F Pulse Rate 75 Respiratory 16 Rate Blood Pressure 173/122 O2 Sat by Pulse 100 Oximetry ED Medical Decision Making - Medical Decision Making 41-year-old male presents to ED with myalgia is status post trip injury to foot ED course: Patient had asymptomatic elevated blood pressure while in ED. Patient states he forgot to take his blood pressure medication [losartan 300 mg] today and will take it as soon as he gets home. He denies any symptoms. Vital signs are normal patient is in no acute distress Discussed with patient follow-up with primary care physician. Discussed the patient and take medications as prescribed. I discussed the patient if he has any worsening symptoms or new symptoms to return to ED Patient has no neurological deficit. Patient is alert and oriented 3 and understands all instructions given. Discussed drowsiness effect of Flexeril makes her drowsy and not to operate machinery while taking flexeril Critical care attestation.: If time is entered above; I have spent that time in minutes in the direct care of this critically ill patient, excluding procedure time. ED Disposition Clinical Impression: Arthralgia of foot Qualifiers: Laterality: right Qualified Code(s): M25.571 - Pain in right ankle and joints of right foot Right foot strain Qualifiers: Encounter type: initial encounter Qualified Code(s): S96.911A - Strain of unspecified muscle and tendon at ankle and foot level, right foot, initial encounter Disposition: TO HOME OR SELFCARE Is pt being admited?: No Does the pt Need Aspirin: No Condition: Stable Instructions: Musculoskeletal Pain (ED), Arthralgia (ED) Additional Instructions: Make sure to follow up with the primary care physician as discussed. Take all your medications as you've been prescribed. If you have any worsening symptoms or develop new symptoms please return to ED immediately. Prescriptions: Cyclobenzaprine [Flexeril] 10 mg PO QHS PRN #20 tablet PRN Reason: Muscle Spasm Ibuprofen [Motrin] 800 mg PO Q8HR PRN #30 tablet PRN Reason: Pain Referrals: PRIMARY CARE, [Primary Care Provider] - 3-5 Days DELTA SIMPSON MD [Referring] - 3-5 Days [facility] [Outside] - 3-5 Days [facility] [Outside] - 3-5 Days Forms: Work/School Release Form(ED) Time of Disposition: 23:17
[2017-04-20 05:21] VITALS: BP 168/104
== END 2017-04-19 23:40 | disposition home or self-care (01) ==
LOC: ED 17:24
DX: S96.911A Strain of unspecified muscle and tendon at ankle and foot level, right foot, initial encounter (principal); M25.571 Pain in right ankle and joints of right foot; I10 Essential (primary) hypertension; F17.200 Nicotine dependence, unspecified, uncomplicated; N28.9 Disorder of kidney and ureter, unspecified; W10.8XXA Fall (on) (from) other stairs and steps, initial encounter; Y93.89 Activity, other specified; Y92.89 Other specified places as the place of occurrence of the external cause; Y99.8 Other external cause status
CPT/HCPCS: 99282

== ENCOUNTER 2019-01-20 11:11 | Emergency (ER) | payer BC, OTHER ==
--- NOTE | 2019-01-20 12:10 | Emergency Department Report ---
ED Chest Pain HPI - General Chief Complaint: Chest Pain Stated Complaint: CHEST PAIN Time Seen by Provider: 01/20/19 11:29 Source: patient, EMS Mode of arrival: Stretcher Limitations: No Limitations - History of Present Illness Initial Comments: 43-year-old male presents to the emergency department via EMS from home with complaint of some chest pain, lightheadedness/dizziness, generalized weakness and uncontrolled blood pressure. The patient was just admitted and discharged from [facility] for similar symptoms. He was discharged home on hydrochlorothiazide 25, amlodipine 10 mg, atenolol 100 mg each day, hydralazine 25 mg 3 times a day. He just filled these meds yesterday and have not yet taken them. He was found to have a blood pressure with a systolic greater than 200. With this, along with his symptoms, he was given some sublingual nitroglycerin and a full dose aspirin. The blood pressure has come down to a more reasonable level and the chest pain has resolved. The patient is a tobacco smoker and just quit 5 days ago during his previous admission. Denies any illicit drug use. He does not have a primary care physician. No recent travel or sick contacts at home. - Related Data Home Medications Medication Instructions Recorded Confirmed Last Taken Labetalol 300 mg PO BID 06/25/16 12/14/16 12/11/16 Losartan 100 mg PO DAILY 06/25/16 12/14/16 12/11/16 Previous Rx's Medication Instructions Recorded Last Taken Type Ibuprofen [Motrin] 600 mg PO Q8H PRN #20 tablet 12/15/16 Unknown Rx traMADol [Ultram 50 MG tab] 50 mg PO Q6HR PRN #20 tablet 12/15/16 Unknown Rx Cyclobenzaprine [Flexeril] 10 mg PO QHS PRN #20 tablet 04/19/17 Unknown Rx Ibuprofen [Motrin] 800 mg PO Q8HR PRN #30 tablet 04/19/17 Unknown Rx Allergies Allergy/AdvReac Type Severity Reaction Status Date / Time No Known Allergies Allergy Verified 06/25/16 21:23 Heart Score - HEART Score History: Slightly suspicious EKG: Non-specific Age: < 45 Risk factors: 1-2 risk factors Troponin: < normal limit HEART Score: 2 - Critical Actions Critical Actions: 0-3 pts:0.9-1.7%risk of adverse cardiac event.Candidate for discharge ED Review of Systems ROS: Stated complaint: CHEST PAIN Other details as noted in HPI Comment: All other systems reviewed and negative Constitutional: weakness. denies: fever Eyes: denies: eye pain, vision change ENT: denies: ear pain, throat pain Respiratory: shortness of breath. denies: cough Cardiovascular: chest pain. denies: palpitations Gastrointestinal: denies: abdominal pain, vomiting Genitourinary: denies: dysuria, discharge Musculoskeletal: denies: back pain, arthralgia Skin: denies: rash, lesions Neurological: denies: headache, numbness ED Past Medical Hx - Past Medical History Previous Medical History?: Yes Hx Hypertension: Yes Hx Renal Disease: Yes - Surgical History Past Surgical History?: No - Social History Smoking Status: Current Every Day Smoker Substance Use Type: None - Medications Home Medications: Home Medications Medication Instructions Recorded Confirmed Last Taken Type Labetalol 300 mg PO BID 06/25/16 12/14/16 12/11/16 History Losartan 100 mg PO DAILY 06/25/16 12/14/16 12/11/16 History Ibuprofen [Motrin] 600 mg PO Q8H PRN #20 tablet 12/15/16 Unknown Rx traMADol [Ultram 50 MG tab] 50 mg PO Q6HR PRN #20 tablet 12/15/16 Unknown Rx Cyclobenzaprine [Flexeril] 10 mg PO QHS PRN #20 tablet 04/19/17 Unknown Rx Ibuprofen [Motrin] 800 mg PO Q8HR PRN #30 tablet 04/19/17 Unknown Rx ED Physical Exam - General Limitations: No Limitations - Other Other exam information: GENERAL: The patient is well-developed well-nourished. HENT: Normocephalic. Atraumatic. Patient has moist mucous membranes. EYES: Extraocular motions are intact. NECK: Supple. Trachea is midline. CHEST/LUNGS: Clear to auscultation. There is no respiratory distress noted. HEART/CARDIOVASCULAR: Regular. There is no tachycardia. There is no murmur. ABDOMEN: Abdomen is soft, nontender. Patient has normal bowel sounds. There is no abdominal distention. SKIN: Skin is warm and dry. NEURO: The patient is awake, alert, and oriented. The patient is cooperative. The patient has no focal neurologic deficits. Normal speech. MUSCULOSKELETAL: There is no tenderness or deformity. There is no limitation range of motion. There is no evidence of acute injury. ED Course Vital Signs 01/20/19 01/20/19 01/20/19 11:20 11:22 11:30 Temperature 97.7 F Pulse Rate 57 L 57 L 60 Respiratory 19 17 13 Rate Blood Pressure 164/108 164/108 Blood Pressure [Left] O2 Sat by Pulse 100 99 Oximetry 01/20/19 01/20/19 01/20/19 11:46 12:00 12:06 Temperature Pulse Rate 59 L 59 L 56 L Respiratory 13 11 L 18 Rate Blood Pressure 173/110 147/104 Blood Pressure 162/111 [Left] O2 Sat by Pulse 98 98 99 Oximetry 01/20/19 01/20/19 01/20/19 12:18 12:30 12:48 Temperature Pulse Rate 56 L 53 L 55 L Respiratory 12 11 L Rate Blood Pressure 162/111 162/111 172/117 Blood Pressure [Left] O2 Sat by Pulse 99 99 Oximetry 01/20/19 01/20/19 01/20/19 12:55 13:00 13:17 Temperature Pulse Rate 61 60 Respiratory 18 16 Rate Blood Pressure 147/104 156/93 172/117 Blood Pressure [Left] O2 Sat by Pulse 98 100 96 Oximetry 01/20/19 01/20/19 01/20/19 13:30 13:45 14:01 Temperature Pulse Rate 61 60 60 Respiratory 13 12 12 Rate Blood Pressure 127/87 143/98 150/102 Blood Pressure [Left] O2 Sat by Pulse 98 99 98 Oximetry 01/20/19 14:21 Temperature Pulse Rate 61 Respiratory 17 Rate Blood Pressure Blood Pressure 158/101 [Left] O2 Sat by Pulse 97 Oximetry CHAUNCEY score - Chauncey Score Age > 65: (0) No Aspirin use within the Past 7 Days: (0) No 3 or more CAD Risk Factors: (0) No 2 or more Angina events in past 24 hrs: (0) No Known CAD with more than 50% Stenosis: (0) No Elevated Cardiac Markers: (0) No ST Deviation Greater than 0.5mm: (0) No CHAUNCEY Score: 0 ED Medical Decision Making - Lab Data Result diagrams: 01/20/19 12:02 01/20/19 12:02 - EKG Data -: EKG Interpreted by Ar EKG shows normal: sinus rhythm, axis, intervals, QRS complexes (RBBB), ST-T waves Rate: bradycardia (54 bpm) - EKG Data When compared to previous EKG there are: previous EKG unavailable Interpretation: other (sinus bradycardia, RBBB, no STEMI) - Radiology Data Radiology results: image reviewed interpreted by me: Chest x-ray does not show any acute process. There are no pleural effusions, obvious pneumonia and there is no pneumothorax. - Medical Decision Making This patient presents to the emergency department with complaint of uncontrolled blood pressure, some chest pain that has since resolved, and some generalized weakness and lightheadedness. On examination he does not have any focal, motor or sensory deficits and his cranial nerves are intact. EKG did not show any signs of ST elevation [place] or dysrhythmia. Chest x-ray did not show any acute process. His labs have been unremarkable including negative troponin and a negative d-dimer. The patient says that he is currently asymptomatic. He was given only 10 mg of hydralazine and his blood pressure came down to the normal range. Patient says he is feeling much better than what brought him to the emergency department. He appears safe for discharge home at this time. We discussed continue with the smoking cessation. We discussed staying away from foods that are high in salt and caffeinated products. We discussed keeping a blood pressure log. His information has been sent to [facility] cardiology and they will be contacting him for close outpatient follow-up. The patient has been instructed to return to the emergency Department with any return of his chest pain, worsening of his symptoms, or with any acute distress. - Differential Diagnosis [place], PE, costochondritis, GERD Critical Care Time: No Critical care attestation.: If time is entered above; I have spent that time in minutes in the direct care of this critically ill patient, excluding procedure time. ED Disposition Clinical Impression: Chest pain Qualifiers: Chest pain type: unspecified Qualified Code(s): R07.9 - Chest pain, unspecified HTN (hypertension) Qualifiers: Hypertension type: essential hypertension Qualified Code(s): I10 - Essential (primary) hypertension Disposition: TO HOME OR SELFCARE Is pt being admited?: No Condition: Stable Instructions: Chest Pain (ED), Hypertension (ED) Additional Instructions: Please follow-up with a primary care physician in the next few days. Return to the emergency department immediately with any return of your chest pain, uncontrolled and elevated blood pressure, or with any acute distress. I have sent your contact information over to [facility] and someone from their office will be contacting you shortly for close outpatient f ollow-up. Do not return to smoking cigarettes. Try to stay away from foods that are high in salt and caffeinated products to help with your blood pressure. Continue taking your blood pressure medications. Keep a blood pressure log. Referrals: PRIMARY CARE, [Primary Care Provider] - 2-3 Days AMA DUARTE MD [Staff Physician] - 2-3 Days [facility] [Outside] - 2-[address] [facility] [Provider Group] - 2-3 Days Time of Disposition: 13:52
--- NOTE | 2019-01-20 12:22 | XRay Report ---
CHEST 1 VIEW 01/20/2019 12:06 PM INDICATION / CLINICAL INFORMATION: Chest Pain. COMPARISON: Chest x-ray 12/14/2016 FINDINGS: SUPPORT DEVICES: None. HEART / MEDIASTINUM: No significant abnormality. LUNGS / PLEURA: No significant pulmonary or pleural abnormality. No pneumothorax. ADDITIONAL FINDINGS: No significant additional findings. IMPRESSION: 1. No acute findings. Signer Name: Amando Rodríguez MD Signed: 01/20/2019 12:18 PM Workstation Name: [id number]
[2019-01-20 12:26] LABS: Basophils # (Auto) 0.1 K/mm3 (0.0-0.1); Basophils % (Auto) 0.4 % (0.0-1.8); Eosinophils # (Auto) 0.3 K/mm3 (0.0-0.4); Hematocrit 45.5 % (35.5-45.6); Hemoglobin 15.8 gm/dl (11.8-15.2); Lymphocytes # (Auto) 2.7 K/mm3 (1.2-5.4); Lymphocytes % (Auto) 18.7 % (13.4-35.0); Mean Corpuscular HGB Conc 35 % (32-34); Mean Corpuscular Volume 95 fl (84-94); Monocytes # (Auto) 0.8 K/mm3 (0.0-0.8); Monocytes % (Auto) 5.6 % (0.0-7.3); Red Blood Count 4.81 M/mm3 (3.65-5.03); Red Cell Distribution Width 14.3 % (13.2-15.2)
[2019-01-20] MEDS ORDERED: hydrALAZINE 20 MG/1 ML INJ IV ONE (12:32)
[2019-01-20 12:45] LABS: Alanine Aminotransferase 14 units/L (7-56); Albumin 4.9 g/dL (3.9-5); BUN/Creatinine Ratio 23; Blood Urea Nitrogen 41 mg/dL (9-20); Calcium 9.8 mg/dL (8.4-10.2); Hemolysis Index 7
[2019-01-20 12:58] LABS: Platelet Count 285 K/mm3 (140-440)
[2019-01-20 14:22] VITALS: BP 158/101
== END 2019-01-20 14:21 | disposition home or self-care (01) ==
LOC: ED 11:11
DX: R07.89 Other chest pain (principal); I10 Essential (primary) hypertension; R53.1 Weakness; R42 Dizziness and giddiness; F17.200 Nicotine dependence, unspecified, uncomplicated; Z79.899 Other long term (current) drug therapy
CPT/HCPCS: 36415; 71045; 80053; 84443; 84484; 85025; 85379; 93005; 93010; 96374; 99285; J0360

== ENCOUNTER 2020-06-30 08:24 | Emergency (ER) | payer BC ==
--- NOTE | 2020-06-30 08:49 | Event Note ---
ED Screening Note Date of service: 06/30/20 Time: 08:45 ED Screening Note: 45-year-old -[place] male with a history of hypertension and noncompliant presents to the emergency room stating he has disc problems for years and here with another patient and decided to be seen because his back pain has increased in the last 3 days. It was noted that patient's blood pressure was 221/119 and heart rate 71. This initial assessment/diagnostic orders/clinical plan/treatment(s) is/are subject to change based on patients health status, clinical progression and re- assessment by fellow clinical providers in the ED. Further treatment and workup at subsequent clinical providers discretion. Patient/guardian urged not to elope from the ED as their condition may be serious if not clinically assessed and managed. Initial orders include: CBC CMP x-ray lumbar spine PT PTT and EKG concern for aortic dissection.
--- NOTE | 2020-06-30 09:20 | XRay Report ---
LUMBAR SPINE 3 VIEWS INDICATION: Back pain. COMPARISON: No relevant prior imaging study available. FINDINGS: VERTEBRAE: No acute fracture. Normal alignment. DISC SPACES: Mild discogenic degenerative changes are noted at T12-L1. No other significant abnormali ty. FACET JOINTS: No significant abnormality. SOFT TISSUES: No significant abnormality. ADDITIONAL FINDINGS: No additional significant findings. IMPRESSION: 1. No acute findings. 2. Mild thoracic spondylosis. Signer Name: Mamadou Wagner MD Signed: 06/30/2020 9:15 AM Workstation Name: [id number]
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
[2020-06-30] MEDS ORDERED: predniSONE 20 MG TAB PO ONE (10:31)
[2020-06-30 10:40] LABS: Basophils # (Auto) 0.1 K/mm3 (0.0-0.1); Basophils % (Auto) 1.5 % (0.0-1.8); Eosinophils # (Auto) 0.1 K/mm3 (0.0-0.4); Eosinophils % (Auto) 1.1 % (0.0-4.3); Hematocrit 41.6 % (35.5-45.6); Hemoglobin 14.6 gm/dl (11.8-15.2); Lymphocytes # (Auto) 2.2 K/mm3 (1.2-5.4); Lymphocytes % (Auto) 22.8 % (13.4-35.0); Mean Corpuscular HGB Conc 35 % (32-34); Mean Corpuscular Volume 97 fl (84-94); Monocytes # (Auto) 0.6 K/mm3 (0.0-0.8); Monocytes % (Auto) 6.4 % (0.0-7.3); Platelet Count 248 K/mm3 (140-440); Red Cell Distribution Width 13.9 % (13.2-15.2)
[2020-06-30 10:59] LABS: Alanine Aminotransferase 13 units/L (7-56); Albumin 4.4 g/dL (3.9-5); BUN/Creatinine Ratio 11; Blood Urea Nitrogen 17 mg/dL (9-20); Calcium 9.5 mg/dL (8.4-10.2); Hemolysis Index 8
--- NOTE | 2020-06-30 11:00 | XRay Report ---
CHEST 2 VIEWS INDICATION: chest pain. COMPARISON: 01/20/2019 FINDINGS: Support devices: None. Heart: Within normal limits. Lungs/pleura: No acute air space or interstitial disease. No pneumothorax. Additional findings: None. IMPRESSION: No acute findings. Signer Name: Amado Keita Jr, MD Signed: 06/30/2020 10:56 AM Workstation Name: [id number]
[2020-06-30] MEDS ORDERED: cloNIDine 0.2 MG TAB PO ONE (11:47)
[2020-06-30] MEDS ORDERED: hydrALAZINE 20 MG/1 ML INJ IV ONE (12:37)
[2020-06-30 13:06] VITALS: BP 166/107
== END 2020-06-30 13:10 | disposition home or self-care (01) ==
LOC: ED 08:24
DX: M54.2 Cervicalgia (principal); M54.5 Low back pain; I10 Essential (primary) hypertension; F12.90 Cannabis use, unspecified, uncomplicated; Z79.899 Other long term (current) drug therapy; Z91.14 Patient's other noncompliance with medication regimen
CPT/HCPCS: 36415; 71046; 72100; 80053; 85025; 93005; 99284; J0360; J7512

== ENCOUNTER 2021-01-26 14:47 | Emergency (ER) | payer SELFPAY ==
[2021-01-26] MEDS ORDERED: TETANUS,DIPH,PERTUSS(ACELL) VACCINE 0.5 ML SYRINGE IM ONE (16:07)
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
--- NOTE | 2021-01-26 16:40 | XRay Report ---
RIGHT TOES 3 VIEW(S) INDICATION / CLINICAL INFORMATION: right 2nd toe injury COMPARISON: None available. FINDINGS: BONES / JOINT(S): Acute moderately displaced comminuted fracture involving the second toe terminal tu ft. No significant arthritis. SOFT TISSUES: No significant abnormality. ADDITIONAL FINDINGS: None. Signer Name: Amando Rodríguez MD Signed: 01/26/2021 4:35 PM Workstation Name: [id number]
[2021-01-26 17:55] VITALS: BP 190/111
== END 2021-01-26 17:59 | disposition home or self-care (01) ==
LOC: ED 14:47
DX: S92.531B Displaced fracture of distal phalanx of right lesser toe(s), initial encounter for open fracture (principal); I10 Essential (primary) hypertension; X58.XXXA Exposure to other specified factors, initial encounter; Y93.89 Activity, other specified; Y92.89 Other specified places as the place of occurrence of the external cause; Y99.8 Other external cause status
CPT/HCPCS: 90471; 90715; 99283

== ENCOUNTER 2021-09-20 09:01 | Emergency (ER) | payer OTHER ==
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
--- NOTE | 2021-09-20 17:43 | Cat Scan Report ---
NONENHANCED CT SCAN OF THE HEAD: INDICATION / CLINICAL INFORMATION: 46 years Male; villanueva htn. TECHNIQUE: Routine CT head without contrast. All CT scans at this location are performed using CT dos e reduction for ALARA by means of automated exposure control. COMPARISON: None. FINDINGS: BRAIN / INTRACRANIAL CONTENTS: No acute hemorrhage, mass effect, midline shift, hydrocephalus, or acu te, large territorial infarct. No chronic infarct or focal atrophy. Normal brain volume and ventricul ar/sulcal size for age. No significant white matter abnormality. CRANIOCERVICAL JUNCTION: No significant abnormality. ORBITS: No significant abnormality of visualized orbits. SINUSES / MASTOIDS: No significant abnormality of the visualized paranasal sinuses or mastoid air cassi ls. ADDITIONAL FINDINGS: None. IMPRESSION: No focal parenchymal lesion Signer Name: Carlo Vicente MD Signed: 09/20/2021 5:38 PM Workstation Name: [id number]
[2021-09-20] MEDS: ACETAMINOPHEN 500 MG TAB PO ONE (18:09)
[2021-09-20] MEDS: METOCLOPRAMIDE 10 MG TAB PO ONE (18:10)
[2021-09-20] MEDS: amLODIPine 5 MG TAB PO ONE (18:10)
[2021-09-20 18:44] VITALS: BP 200/105
[2021-09-20 19:18] LABS: Calcium 10.2 mg/dL (8.4-10.2)
[2021-09-20] MEDS ORDERED: hydrALAZINE 20 MG/1 ML INJ IV ONE ×2 (19:26→21:00)
[2021-09-20] MEDS ORDERED: SODIUM CHLORIDE 0.9% 500 ML 500 ML IV ONE (19:26)
--- NOTE | 2021-09-20 19:58 | Electrocardiograph Report ---
[facility] Test Date: 2021-09-20 Test Time: 09:13:41 Pat Name: KATALINA CORDOBA Department: Room: Gender: M Day Habilitation Specialist: POLO : 1975 Requested By: ED DOC Order Number: [id number] Reading MD: Khalida Casey Measurements Intervals [place] Rate: 58 P: 48 MN: 152 QRS: 60 QRSD: 146 T: 65 QT: 494 QTc: 485 Interpretive Statements Sinus rhythm Right bundle branch block Compared to ECG 06/30/2020 08:54:21 Atrial premature complex(es) no longer present Electronically Signed On 09-20-2021 19:57:55 EDT by Khalida Casey
== END 2021-09-20 21:09 | disposition home or self-care (01) ==
LOC: ED 09:01
DX: I10 Essential (primary) hypertension (principal); R51.9 Headache, unspecified; I12.9 Hypertensive chronic kidney disease with stage 1 through stage 4 chronic kidney disease, or unspecified chronic kidney disease; N18.9 Chronic kidney disease, unspecified; Z91.14 Patient's other noncompliance with medication regimen; Z76.1 Encounter for health supervision and care of foundling; Z28.9 Immunization not carried out for unspecified reason
CPT/HCPCS: 36415; 70450; 80048; 82550; 93005; 99284